=== PATIENT | male | born 1935 | race Caucasian/White ===

== ENCOUNTER 2016-11-15 08:54 | Day surgery (SDC) | payer MEDICARE, OTHER ==
[~2016-11-15] VITALS: Ht 182.9 cm; Wt 117.9 kg
[~2016-11-15 08:54] MED LIST: ALLO300T2 PO; ASPI-628 PO; ATEN50TA PO; GABA300C PO; KEN25CR EXT; KLO5T PO; LOVA40TA PO; MELA3TAB35 PO; OMEP-113 PO; PROZ20 PO; RANI300C PO; ROPI0.25 PO; Sodium Chloride LOK Flush 10 mL Syringe IV PRN; TRM50C PO; fentaNYL-PF 50 mCg/mL 2 mL Inj IVPUSH PRN
[2016-11-15 09:12] VITALS: BP 149/80; PULSE 65; RESP 16; O2SAT 94
[2016-11-15] MEDS: 0.9% Sodium Chloride 1,000 ML IV SCH ×3 (09:30→11:20)
[2016-11-15 10:48] VITALS: BP 145/81; PULSE 66; RESP 14; O2SAT 90
[2016-11-15 10:56] VITALS: BP 130/79; PULSE 74; RESP 14; O2SAT 94
[2016-11-15 11:07] VITALS: BP 127/78; PULSE 77; RESP 16; O2SAT 94
--- NOTE | 2016-11-15 11:16 | ENDO ---
[address] [address] ENDOSCOPY PROCEDURE PATIENT: CAYLA GARZA : 1935 MR#: [id number] ADMIT: 11/15/2016 JOB ID: [id number] DATE: 11/15/2016 PRIMARY PROVIDER: Dino Anderson M.D. PROCEDURE: Esophagogastroduodenoscopy with biopsy. INDICATIONS: A 80-year-old male with fairly longstanding symptoms of reflux with intermittent dysphagia. He had what sounds like a temporary transient food bolus impaction about a week ago. This has all resolved. He remains on omeprazole and ranitidine at the moment. EQUIPMENT: GIF H 180. SEDATION: 1. 4 mg Versed. 2. 100 mcg fentanyl. COMPLICATIONS: None identified. PROCEDURAL INFORMATION: After the risks and benefits were explained, written and verbal informed consent was obtained. The patient was brought into the endoscopy suite and placed into the left lateral decubitus position. Sedation was achieved as above. The scope introduced into the mouth and advanced to the second portion of the duodenum. The scope was slowly withdrawn. Retroflexed views were accomplished in the stomach. The stomach was decompressed. The scope removed from the patient who tolerated the procedure well. FINDINGS: 1. Duodenum: No significant pathology appreciated from the bulb through to the second portion. 2. Stomach: The patient had a mild gastropathy with some scattered erosive features perhaps consistent with aspirin use. A biopsy at random was taken, however, for exclusion of Helicobacter or other pathology. I did not see any evidence of outlet obstruction or ulcerations. No mucosal mass lesions. Retroflexed views of the LES were rather unremarkable. 3. Esophagus: The squamocolumnar junction correlated with the top of the gastric folds. The GEJ was at 41 cm from the incisors. No acute erosive changes. There was an approximately 2 cm sliding hiatal hernia evident. I did not see any evidence of a Schatzki's at present. No stricturing. No neoplastic features throughout. ENDOSCOPIC DIAGNOSIS: 1. Small sliding hiatal hernia. 2. Mild gastropathy. RECOMMENDATIONS: 1. Await histopathology. 2. The patient is encouraged to continue his anti-reflux regimen and completely chew all of his food very well. 3. If he continues to experience difficulty with swallowing, then further investigation with contrast imaging and a manometry would be appropriate. 4. The patient is in invited to return to GI clinic with Kaden Vazquez in the next four weeks or so to report his progress.
--- NOTE | 2016-11-16 09:59 | PATH ---
SURGICAL PATHOLOGY Attending Physician:Yeimi Robles CASE STATUS: Signed Out PATIENT NAME: CAYLA GARZA PID: [id number] : 1935 DATE COLLECTED:11/15/2016 16:35 SPECIMEN: Gastric, Biopsy CLINICAL HISTORY: 1. GASTRIC FINAL DIAGNOSIS: 1.GASTRIC BIOPSY: FRAGMENT OF FUNDIC MUCOSA WITH SUPERFICIAL MUCOSAL HYPEREMIA WITHOUT ASSOCIATED SIGNIFICANT INFLAMMATION. Negative for evidence of Helicobacter. Negative for intestinal metaplasia. Negative for dysplasia and malignancy. ICD10 R10.9 GROSS DESCRIPTION: The specimen is received in one formalin filled container labeled with the patient's name, sublabeled "gastric" and consists of a 0.4 x 0.3 x 0.2 CM portion of tissue which is entirely submitted in one cassette. 11/15/2016 [facility] MICRO DESCRIPTION: See diagnosis. ICD-9 CODES: CPT CODES: 1: 96338 Electronically Signed Out Julio Iqbal MD [facility] [address], [place] [address] Technical component performed at [facility], [facility] [address], [place], [address]
== END 2016-11-15 23:59 | disposition home or self-care (01) ==
LOC: END 08:54
PROVIDERS: ATTEND Internal Medicine Gastroenterology
DX: R13.10 Dysphagia, unspecified (principal); K21.9 Gastro-esophageal reflux disease without esophagitis; K44.9 Diaphragmatic hernia without obstruction or gangrene; K31.9 Disease of stomach and duodenum, unspecified; I10 Essential (primary) hypertension; E78.5 Hyperlipidemia, unspecified; Z79.82 Long term (current) use of aspirin
CPT/HCPCS: 43239; 88305; G0500; J2250; J3010; J7030